=== PATIENT | female | born 1955 | race Caucasian/White ===

== ENCOUNTER 2017-12-04 03:17 | Inpatient (IN) ==
--- NOTE | 2017-12-04 03:56 | ED ---
HPI General Chief complaint: Nausea/Vomiting/Diarrhea Stated complaint: Diarreha Time Seen by Provider: 12/04/17 03:29 Source: patient and EMS Mode of arrival: EMS Limitations: altered mental status History of Present Illness HPI narrative: Patient is a 62-year-old female who presents to the ER with complaints of not feeling well. As per EMS, patient's close friend called fire rescue to do a well check on patient. Friend reported to EMS that patient posted on a Facebook page that something was not right with her, "help." This friend then talked to patient's mother who informed her that patient has not been acting like her normal self. Reports that she appeared disorganized, she has not been making sense when she talks. When EMS arrived at the house, patient was found sitting in a chair covered in stool. 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 Reports that she has been having right sided kidney pains for the past 5-6 days , her pcp put her on macrobid 100mg bid for 90 days. Reports that for the past 5-6 days, she has not been feeling well and has been nauseous and has been vomiting. Patient is unable to provide further HPI Related Data Home Medications Medication Instructions Recorded Confirmed lamotrigine 50 mg PO BID 12/04/17 12/04/17 levothyroxine 50 mcg PO DAILY 12/04/17 12/04/17 lorazepam 0.5 mg PO DAILY 12/04/17 12/04/17 nitrofurantoin monohyd/m-cryst 100 mg PO Q12H 12/04/17 12/04/17 [Macrobid] paroxetine HCl 10 mg PO HS 12/04/17 12/04/17 Allergies Allergy/AdvReac Type Severity Reaction Status Date / Time No Known Allergies Allergy Verified 12/04/17 03:45 Review of Systems ROS: all other systems reviewed are negative PMFSH History History Provided By: Patient Medical History Medical History Anxiety (Acute) Hypothyroidism (Acute) Surgical History Surgical History History of kidney removal (Acute) Hx of tonsillectomy (Acute) Social History Social History Substance History: No History of Abuse Second Hand Smoke Exposure: No Smoking Status: Never smoker How Often Do You Have a Drink Containing Alcohol: 2 to 4 times a month Recent Travel in [facility] within the Last 8 Weeks: No Exam Narrative Exam Narrative: GENERAL: moderate distress SKIN: Focused skin assessment warm/dry. HEAD: Atraumatic. Normocephalic. EYES: Pupils equal and round. No scleral icterus. No injection or drainage. ENT: No nasal bleeding or discharge. Mucous membranes pink and moist. NECK: Trachea midline. No JVD. CARDIOVASCULAR: Regular rate and rhythm. No murmur appreciated. RESPIRATORY: No accessory muscle use. Clear to auscultation. Breath sounds equal bilaterally. GASTROINTESTINAL: Abdomen soft, non-tender, nondistended. Hepatic and splenic margins not palpable. MUSCULOSKELETAL: No obvious deformities. No clubbing. No cyanosis. No edema. NEUROLOGICAL: Awake and alert. No obvious cranial nerve deficits. Motor grossly within normal limits. Normal speech. PSYCHIATRIC: Patient confused, alert to person Course Initial Documented Vital Signs Temperature 99.2 F 12/04/17 03:26 Pulse Rate 83 12/04/17 03:26 Respiratory Rate 18 12/04/17 03:26 Blood Pressure 131/90 12/04/17 03:26 Pulse Oximetry 99 12/04/17 03:26 Last Documented Vital Signs Temperature 99.2 F 12/04/17 03:26 Pulse Rate 93 H 12/04/17 05:16 Respiratory Rate 16 12/04/17 05:16 Blood Pressure 124/57 L 12/04/17 05:16 Pulse Oximetry 98 12/04/17 05:16 Medical Decision Making [facility] Narrative Medical decision making narrative: During the course of the patients emergency department visit, the patients history, examination, and differential diagnosis were reviewed with the patient. The patient was placed on a cable systems installer with oximetry and frequent blood pressure monitoring. The patient had an IV access obtained and blood work sent for analysis. Sodium 136, chloride 104, potassium 3.6, BUN 34, creatinine 1.64, calcium 7.3 UA: cloudy urine, 100 protein, trace ketones, 6wbc, rare bacteria wbc 9.6, hgb 14.3, hct 43, plateltes 95 The patient was initially provided IVF as well as rocephin for treatment of uti. Ct of head: negative Patient will be admitted for acute delirium and for treatment of UTI with renal insuffiency Case reviewed with Dr Sunshine who accepts pt to service Medical Screen Exam Complete: Yes Emergency Medical Condition: Yes Differential Diagnosis Differential Diagnosis: delirium, uti, pyelonephritis, ich, cva, electrolyte abnormality Medical Records Medical records reviewed: Yes I reviewed the patient's medical records. Lab Data Result diagrams: 12/04/17 04:04 12/04/17 04:04 Lab Results 12/04/17 12/04/17 12/04/17 Range/Units 04:04 04:04 04:04 WBC (4.0-11.0) th/mm3 RBC (4.00-5.30) mil/mm3 Hgb (11.6-15.3) gm/dL Hct (35.0-46.0) % MCV (80.0-100.0) fL MCH (27.0-34.0) pg MCHC (32.0-36.0) % RDW (11.6-17.2) % Plt Count (150-450) th/mm3 MPV (7.0-11.0) fL Prelim Diff (Auto) Neut % (Auto) (16.0-70.0) % Lymph % (Auto) (9.0-44.0) % [place] % (Auto) (0.0-8.0) % Eos % (Auto) (0.0-4.0) % Baso % (Auto) (0.0-2.0) % Neut # (Auto) (1.8-7.7) th/mm3 Lymph # (Auto) (1.0-4.8) th/mm3 [place] # (Auto) (0.0-0.9) th/mm3 Eos # (Auto) (0.0-0.4) th/mm3 Baso # (Auto) (0.0-0.2) th/mm3 WBC Differential Diff Scan Differential Comment Toxic Vacuolation (None) Platelet Estimate (Normal) Platelet Morphology (Normal) RBC Morphology (Normal) PT 11.0 (9.8-11.6) sec INR 1.1 Ratio APTT 22.8 L (24.3-30.1) sec Sodium 136 (136-145) meq/L Potassium 3.6 (3.5-5.1) meq/L Chloride 104 (98-107) meq/L Carbon Dioxide 21.9 (21.0-32.0) meq/L Anion Gap 10 (5-15) meq/L BUN 34 H (7-18) mg/dL Creatinine 1.64 H (0.50-1.00) mg/dL Estimated GFR 32 L (>89) mL/min Random Glucose 126 H (74-106) mg/dL Calcium 7.3 L* (8.5-10.1) mg/dL Prot Corrected Calcium 7.3 L* (8.5-10.1) mg/dL Total Bilirubin 0.4 (0.2-1.0) mg/dL AST 59 H (15-37) U/L ALT 60 H (10-53) U/L Alkaline Phosphatase 59 (45-117) U/L Ammonia (11-32) mcmol/L Troponin I 0.04 (0.02-0.05) ng/mL Total Protein 7.2 (6.4-8.2) g/dL Albumin 2.7 L (3.4-5.0) g/dL Urine Color (Yellw/Straw) Urine Clarity (Clear) Urine pH (5.0-8.5) Ur Specific [place] (1.002-1.035) Urine Protein (Neg-Trace) mg/dL Urine Glucose (UA) (Negative) mg/dL Urine Ketones (Negative) mg/dL Urine Occult Blood (Negative) Urine Nitrate (Negative) Urine Bilirubin (Negative) Urine Urobilinogen (Less than 2) mg/dL Ur Leukocyte Esterase (Negative) Urine WBC (0-5) /hpf Ur Squamous Epith Cells (0-5) /hpf Amorphous Sediment (None) /hpf Urine Bacteria (None) /hpf Hyaline Casts (0-3) /lpf Granular Casts (None) /lpf Urine Mucus (Occasional) /lpf Micro UA Comment Ur Microscopic Review Urine Culture Comments Salicylates Less than 1.7 L (2.8-20.0) mg/dL Urine Opiates Screen (Neg) Acetaminophen Less than 2.0 L (10.0-30.0) mcg/mL Ur Barbiturates Screen (Neg) Ur Amphetamines Screen (Neg) U Benzodiazepines Scrn (Neg) Urine Cocaine Screen (Neg) U Cannabinoids Screen (Neg) Serum Alcohol Less than 3 (0-5) mg/dL 12/04/17 12/04/17 12/04/17 Range/Units 04:04 04:04 04:07 WBC 9.6 (4.0-11.0) th/mm3 RBC 4.90 (4.00-5.30) mil/mm3 Hgb 14.3 (11.6-15.3) gm/dL Hct 43.0 (35.0-46.0) % MCV 87.6 (80.0-100.0) fL MCH 29.2 (27.0-34.0) pg MCHC 33.4 (32.0-36.0) % RDW 13.3 (11.6-17.2) % Plt Count 95 L (150-450) th/mm3 MPV 11.8 H (7.0-11.0) fL Prelim Diff (Auto) Slide review pending Neut % (Auto) 84.3 H (16.0-70.0) % Lymph % (Auto) 9.8 (9.0-44.0) % [place] % (Auto) 5.4 (0.0-8.0) % Eos % (Auto) 0.1 (0.0-4.0) % Baso % (Auto) 0.4 (0.0-2.0) % Neut # (Auto) 8.1 H (1.8-7.7) th/mm3 Lymph # (Auto) 0.9 L (1.0-4.8) th/mm3 [place] # (Auto) 0.5 (0.0-0.9) th/mm3 Eos # (Auto) 0.0 (0.0-0.4) th/mm3 Baso # (Auto) 0.0 (0.0-0.2) th/mm3 WBC Differential . Diff Scan Auto diff confirmed Differential Comment . Toxic Vacuolation Present H (None) Platelet Estimate Low L (Normal) Platelet Morphology Enlarged H (Normal) RBC Morphology Normal (Normal) PT (9.8-11.6) sec INR Ratio APTT (24.3-30.1) sec Sodium (136-145) meq/L Potassium (3.5-5.1) meq/L Chloride (98-107) meq/L Carbon Dioxide (21.0-32.0) meq/L Anion Gap (5-15) meq/L BUN (7-18) mg/dL Creatinine (0.50-1.00) mg/dL Estimated GFR (>89) mL/min Random Glucose (74-106) mg/dL Calcium (8.5-10.1) mg/dL Prot Corrected Calcium (8.5-10.1) mg/dL Total Bilirubin (0.2-1.0) mg/dL AST (15-37) U/L ALT (10-53) U/L Alkaline Phosphatase (45-117) U/L Ammonia 15 (11-32) mcmol/L Troponin I (0.02-0.05) ng/mL Total Protein (6.4-8.2) g/dL Albumin (3.4-5.0) g/dL Urine Color (Yellw/Straw) Urine Clarity (Clear) Urine pH (5.0-8.5) Ur Specific [place] (1.002-1.035) Urine Protein (Neg-Trace) mg/dL Urine Glucose (UA) (Negative) mg/dL Urine Ketones (Negative) mg/dL Urine Occult Blood (Negative) Urine Nitrate (Negative) Urine Bilirubin (Negative) Urine Urobilinogen (Less than 2) mg/dL Ur Leukocyte Esterase (Negative) Urine WBC (0-5) /hpf Ur Squamous Epith Cells (0-5) /hpf Amorphous Sediment (None) /hpf Urine Bacteria (None) /hpf Hyaline Casts (0-3) /lpf Granular Casts (None) /lpf Urine Mucus (Occasional) /lpf Micro UA Comment Ur Microscopic Review Urine Culture Comments Salicylates (2.8-20.0) mg/dL Urine Opiates Screen Neg (Neg) Acetaminophen (10.0-30.0) mcg/mL Ur Barbiturates Screen Neg (Neg) Ur Amphetamines Screen Neg (Neg) U Benzodiazepines Scrn Neg (Neg) Urine Cocaine Screen Neg (Neg) U Cannabinoids Screen Neg (Neg) Serum Alcohol (0-5) mg/dL 12/04/17 Range/Units 04:07 WBC (4.0-11.0) th/mm3 RBC (4.00-5.30) mil/mm3 Hgb (11.6-15.3) gm/dL Hct (35.0-46.0) % MCV (80.0-100.0) fL MCH (27.0-34.0) pg MCHC (32.0-36.0) % RDW (11.6-17.2) % Plt Count (150-450) th/mm3 MPV (7.0-11.0) fL Prelim Diff (Auto) Neut % (Auto) (16.0-70.0) % Lymph % (Auto) (9.0-44.0) % [place] % (Auto) (0.0-8.0) % Eos % (Auto) (0.0-4.0) % Baso % (Auto) (0.0-2.0) % Neut # (Auto) (1.8-7.7) th/mm3 Lymph # (Auto) (1.0-4.8) th/mm3 [place] # (Auto) (0.0-0.9) th/mm3 Eos # (Auto) (0.0-0.4) th/mm3 Baso # (Auto) (0.0-0.2) th/mm3 WBC Differential Diff Scan Differential Comment Toxic Vacuolation (None) Platelet Estimate (Normal) Platelet Morphology (Normal) RBC Morphology (Normal) PT (9.8-11.6) sec INR Ratio APTT (24.3-30.1) sec Sodium (136-145) meq/L Potassium (3.5-5.1) meq/L Chloride (98-107) meq/L Carbon Dioxide (21.0-32.0) meq/L Anion Gap (5-15) meq/L BUN (7-18) mg/dL Creatinine (0.50-1.00) mg/dL Estimated GFR (>89) mL/min Random Glucose (74-106) mg/dL Calcium (8.5-10.1) mg/dL Prot Corrected Calcium (8.5-10.1) mg/dL Total Bilirubin (0.2-1.0) mg/dL AST (15-37) U/L ALT (10-53) U/L Alkaline Phosphatase (45-117) U/L Ammonia (11-32) mcmol/L Troponin I (0.02-0.05) ng/mL Total Protein (6.4-8.2) g/dL Albumin (3.4-5.0) g/dL Urine Color Naomi (Yellw/Straw) Urine Clarity Cloudy H (Clear) Urine pH 5.0 (5.0-8.5) Ur Specific [place] 1.024 (1.002-1.035) Urine Protein 100 H (Neg-Trace) mg/dL Urine Glucose (UA) Negative (Negative) mg/dL Urine Ketones Trace H (Negative) mg/dL Urine Occult Blood Small H (Negative) Urine Nitrate Negative (Negative) Urine Bilirubin Negative (Negative) Urine Urobilinogen 2.0 H (Less than 2) mg/dL Ur Leukocyte Esterase Negative (Negative) Urine WBC 6 H (0-5) /hpf Ur Squamous Epith Cells 1 (0-5) /hpf Amorphous Sediment Occasional H (None) /hpf Urine Bacteria Rare H (None) /hpf Hyaline Casts 32 (0-3) /lpf Granular Casts 3 (None) /lpf Urine Mucus Many H (Occasional) /lpf Micro UA Comment Cath-culture ind Ur Microscopic Review Not Reportable Urine Culture Comments Cath-cult indicated Salicylates (2.8-20.0) mg/dL Urine Opiates Screen (Neg) Acetaminophen (10.0-30.0) mcg/mL Ur Barbiturates Screen (Neg) Ur Amphetamines Screen (Neg) U Benzodiazepines Scrn (Neg) Urine Cocaine Screen (Neg) U Cannabinoids Screen (Neg) Serum Alcohol (0-5) mg/dL Imaging Data Radiologist's impression: Head CT 12/04/17 03:50 CONCLUSION: Negative CT Head non contrast. . ECG Data EKG Prior to Arrival: No Attestation: I personally reviewed and interpreted this ECG as follows: Interpretation: EKG at 0349: Sinus tach at 102bpm, qt/qtc: 323/392, pvc's Discharge Plan Discharge Disposition Patient Disposition: 30 Still Patient Discharge Details Diagnosis: Acute delirium, Acute UTI, Acute renal insufficiency Physicians Team ED Provider: Constanza Mack Primary Care Provider: UNKNOWN, Rxs /Orders / Referrals /Forms Prescriptions: No Action paroxetine HCl 10 mg Tablet 10 mg PO HS RF: 0 lamotrigine 25 mg Tablet 50 mg PO BID RF: 0 lorazepam 0.5 mg Tablet 0.5 mg PO DAILY RF: 0 levothyroxine 50 mcg Tablet 50 mcg PO DAILY RF: 0 nitrofurantoin monohyd/m-cryst [Macrobid] 100 mg Capsule 100 mg PO Q12H RF: 0 Status ED Status: With Doctor
[2017-12-04] MEDS ORDERED: Sod Chloride 0.9% Inj 1,000 ML IV.SIG SCH (04:00)
[2017-12-04 04:16] LABS: Baso % (Auto) 0.4 % (0.0-2.0); Eos % (Auto) 0.1 % (0.0-4.0); Hemoglobin 14.3 gm/dL (11.6-15.3); Lymph # (Auto) 0.9 th/mm3 (1.0-4.8); Lymph % (Auto) 9.8 % (9.0-44.0); Mean Corpuscular HGB Conc 33.4 % (32.0-36.0); Mean Corpuscular Hemoglobin 29.2 pg (27.0-34.0); Mean Corpuscular Volume 87.6 fL (80.0-100.0); Mean Platelet Volume 11.8 fL (7.0-11.0); Mono # (Auto) 0.5 th/mm3 (0.0-0.9); Mono % (Auto) 5.4 % (0.0-8.0); Neut # (Auto) 8.1 th/mm3 (1.8-7.7); Neut % (Auto) 84.3 % (16.0-70.0); Platelet Count 95 th/mm3 (150-450); Red Cell Distribution Width 13.3 % (11.6-17.2); White Blood Count 9.6 th/mm3 (4.0-11.0)
[2017-12-04 04:25] LABS: Activated Partial Thrombo Time 22.8 sec (24.3-30.1); INR 1.1 Ratio
[2017-12-04 04:38] LABS: Amphetamine Screen,Urine Neg (Neg); Barbiturate Screen,Urine Neg (Neg); Cannabinoid Screen,Urine Neg (Neg); Cocaine Screen,Urine Neg (Neg)
[2017-12-04 04:43] LABS: Amorphous Sediment,Urine Occasional /hpf; Bacteria,Urine Rare /hpf; Bilirubin,Urine Negative (Negative); Clarity,Urine Cloudy (Clear); Color,Urine Amber (Yellw/Straw); Glucose,Urine (UA) Negative (Negative); Hyaline Casts,Urine 32 /lpf (0-3); Leukocyte Esterase,Urine Negative (Negative); Mucus,Urine Many /lpf (Occasional); Nitrite,Urine Negative (Negative); Specific Gravity,Urine 1.024 (1.002-1.035); Squamous Epithelial Cell,Urine 1 /hpf (0-5)
[2017-12-04 04:53] LABS: Opiate Screen,Urine Neg (Neg)
[2017-12-04 04:54] LABS: Alanine Aminotransferase 60 U/L (10-53); Albumin 2.7 g/dL (3.4-5.0); Alkaline Phosphatase 59 U/L (45-117); Anion Gap 10 meq/L (5-15); Aspartate Aminotransferase 59 U/L (15-37); Blood Urea Nitrogen 34 mg/dL (7-18); Calcium 7.3 mg/dL (8.5-10.1); Carbon Dioxide 21.9 meq/L (21.0-32.0); Chloride 104 meq/L (98-107); Glomerular Filtration Rate 32 mL/min (>89); Glucose,Random 126 mg/dL (74-106); Potassium 3.6 meq/L (3.5-5.1); Sodium 136 meq/L (136-145); Total Protein 7.2 g/dL (6.4-8.2); Troponin I 0.04 ng/mL (0.02-0.05)
[2017-12-04 05:48] LABS: RBC Morphology Normal (Normal); Toxic Vacuolation Present
[2017-12-04] MEDS ORDERED: Bisacodyl 10 MG Supp RECTAL PRN (06:26)
[2017-12-04] MEDS: Sod Chloride 0.9% Inj 1,000 ML IV.CONT SCH ×2 (06:59→17:00)
[2017-12-04] MEDS: Levothyroxine 50 MCG Tablet PO SCH (08:45)
[2017-12-04 09:02] LABS: Thyroid Stimulating Hormone 0.632 uIU/mL (0.358-3.740); Troponin I 0.03 ng/mL (0.02-0.05)
[2017-12-04] MEDS: lamoTRIgine 25 MG TABLET PO SCH ×2 (09:19→23:47)
[2017-12-04] MEDS: Lactobacillus Acidophilus/L. Spores Tablet PO SCH ×2 (13:00→17:55)
[2017-12-04] MEDS: Acetaminophen 325 MG Tablet PO PRN ×2 (15:19→23:47)
--- NOTE | 2017-12-04 19:45 | ECG ---
Date Performed: 12/04/2017 Time Performed: 03:49:52 PTAGE: 62 years EKG: SINUS TACHYCARDIA WITH OCCASIONAL VENTRICULAR PREMATURE COMPLEXES RIGHT AXIS DEVIATION ABNO RMAL ECG NO PREVIOUS TRACING DOCTOR: Rodrigo Piedra Interpretating Date/Time 12/04/2017 19:44:33
[2017-12-05] MEDS: Levothyroxine 50 MCG Tablet PO SCH (06:16)
[2017-12-05 07:00] LABS: Baso % (Auto) 0.5 % (0.0-2.0); Eos # (Auto) 0.3 th/mm3 (0.0-0.4); Eos % (Auto) 3.6 % (0.0-4.0); Hematocrit 41.7 % (35.0-46.0); Hemoglobin 13.9 gm/dL (11.6-15.3); Lymph # (Auto) 1.2 th/mm3 (1.0-4.8); Lymph % (Auto) 13.1 % (9.0-44.0); Mean Corpuscular HGB Conc 33.3 % (32.0-36.0); Mean Corpuscular Hemoglobin 29.4 pg (27.0-34.0); Mean Corpuscular Volume 88.3 fL (80.0-100.0); Mean Platelet Volume 11.8 fL (7.0-11.0); Mono # (Auto) 0.6 th/mm3 (0.0-0.9); Mono % (Auto) 6.2 % (0.0-8.0); Neut # (Auto) 6.9 th/mm3 (1.8-7.7); Neut % (Auto) 76.6 % (16.0-70.0); Platelet Count 91 th/mm3 (150-450); Red Blood Count 4.72 mil/mm3 (4.00-5.30); Red Cell Distribution Width 13.3 % (11.6-17.2)
[2017-12-05 07:22] LABS: Alanine Aminotransferase 63 U/L (10-53); Albumin 2.7 g/dL (3.4-5.0); Alkaline Phosphatase 65 U/L (45-117); Anion Gap 9 meq/L (5-15); Aspartate Aminotransferase 65 U/L (15-37); Blood Urea Nitrogen 18 mg/dL (7-18); Chloride 108 meq/L (98-107); Glomerular Filtration Rate 53 mL/min (>89); Glucose,Random 85 mg/dL (74-106); Potassium 4.2 meq/L (3.5-5.1); Sodium 138 meq/L (136-145); Total Protein 7.6 g/dL (6.4-8.2)
[2017-12-05] MEDS: Sod Chloride 0.9% Inj 1,000 ML IV.CONT SCH (07:54)
[2017-12-05 09:15] LABS: Platelet Morphology Normal (Normal)
[2017-12-05 09:17] LABS: Toxic Granulation 1+; Toxic Vacuolation Present
[2017-12-05] MEDS: lamoTRIgine 25 MG TABLET PO SCH ×2 (09:48→22:00)
[2017-12-05] MEDS: Lactobacillus Acidophilus/L. Spores Tablet PO SCH ×3 (09:48→22:01)
[2017-12-05] MEDS: Acetaminophen 325 MG Tablet PO PRN ×2 (09:50→17:20)
[2017-12-06] MEDS: Sod Chloride 0.9% Inj 1,000 ML IV.CONT SCH ×4 (02:20→19:39)
[2017-12-06 05:11] LABS: Hematocrit 38.1 % (35.0-46.0); Hemoglobin 12.7 gm/dL (11.6-15.3); Mean Corpuscular HGB Conc 33.4 % (32.0-36.0); Mean Corpuscular Hemoglobin 29.1 pg (27.0-34.0); Mean Corpuscular Volume 87.2 fL (80.0-100.0); Mean Platelet Volume 11.9 fL (7.0-11.0); Platelet Count 101 th/mm3 (150-450); Red Blood Count 4.38 mil/mm3 (4.00-5.30); White Blood Count 7.6 th/mm3 (4.0-11.0)
[2017-12-06 05:37] LABS: Alanine Aminotransferase 54 U/L (10-53); Albumin 2.4 g/dL (3.4-5.0); Alkaline Phosphatase 60 U/L (45-117); Anion Gap 11 meq/L (5-15); Aspartate Aminotransferase 49 U/L (15-37); Blood Urea Nitrogen 14 mg/dL (7-18); Calcium 7.6 mg/dL (8.5-10.1); Carbon Dioxide 20.7 meq/L (21.0-32.0); Chloride 108 meq/L (98-107); Glomerular Filtration Rate 56 mL/min (>89); Glucose,Random 94 mg/dL (74-106); Potassium 3.3 meq/L (3.5-5.1); Sodium 140 meq/L (136-145); Total Protein 6.7 g/dL (6.4-8.2)
[2017-12-06] MEDS: Levothyroxine 50 MCG Tablet PO SCH (05:45)
[2017-12-06] MEDS: lamoTRIgine 25 MG TABLET PO SCH ×2 (08:45→21:08)
[2017-12-06] MEDS: Lactobacillus Acidophilus/L. Spores Tablet PO SCH ×3 (08:45→19:39)
[2017-12-06] MEDS ORDERED: Potassium Chloride 25 MEQ Effervescent Tablet PO ONE (10:00)
[2017-12-06] MEDS: Acetaminophen 325 MG Tablet PO PRN (12:10)
[2017-12-07 05:34] LABS: Hematocrit 36.1 % (35.0-46.0); Hemoglobin 12.2 gm/dL (11.6-15.3); Mean Corpuscular HGB Conc 33.8 % (32.0-36.0); Mean Corpuscular Hemoglobin 29.2 pg (27.0-34.0); Mean Corpuscular Volume 86.4 fL (80.0-100.0); Mean Platelet Volume 11.9 fL (7.0-11.0); Platelet Count 117 th/mm3 (150-450); Red Blood Count 4.18 mil/mm3 (4.00-5.30); Red Cell Distribution Width 13.1 % (11.6-17.2); White Blood Count 6.5 th/mm3 (4.0-11.0)
[2017-12-07] MEDS: Acetaminophen 325 MG Tablet PO PRN (05:51)
[2017-12-07] MEDS: Levothyroxine 50 MCG Tablet PO SCH (05:52)
[2017-12-07] MEDS: Sod Chloride 0.9% Inj 1,000 ML IV.CONT SCH (06:00)
[2017-12-07 06:04] LABS: Albumin 2.3 g/dL (3.4-5.0); Calcium 7.5 mg/dL (8.5-10.1); Potassium 3.5 meq/L (3.5-5.1)
[2017-12-07 06:07] LABS: Total Protein 6.6 g/dL (6.4-8.2)
[2017-12-07] MEDS: Lactobacillus Acidophilus/L. Spores Tablet PO SCH (09:23)
[2017-12-07] MEDS: lamoTRIgine 25 MG TABLET PO SCH (09:23)
== END 2017-12-07 17:43 | disposition home health service (06) ==
LOC: EDBD → NEPE 03:17 → NEDA 05:57 → N06 08:17
PROVIDERS: ADMIT Hospitalist; ATTEND Hospitalist